=== PATIENT | male | born 1995 | race Two or more races ===

== ENCOUNTER 2023-05-16 22:38 | Emergency (ER) | payer OTHER ==
[~2023-05-16] VITALS: Ht 170.2 cm; Wt 71.7 kg
[2023-05-16] MEDS ORDERED: SERTRALINE HCL50 MG PO (23:24)
== END 2023-05-17 04:06 | disposition home or self-care (01) ==
LOC: ER 22:38
DX: S80.01XA Contusion of right knee, initial encounter (principal); S62.101A Fracture of unspecified carpal bone, right wrist, initial encounter for closed fracture; V87.8XXA Person injured in other specified noncollision transport accidents involving motor vehicle (traffic), initial encounter; Y93.9 Activity, unspecified; Y92.9 Unspecified place or not applicable; Y99.9 Unspecified external cause status